=== PATIENT | female | born 2005 | race Two or more races ===

== ENCOUNTER 2025-03-27 22:36 | Emergency (ER) | payer MEDICAID, SELFPAY ==
[2025-03-27 22:38] VITALS: BMI 30.4
--- NOTE | 2025-03-27 23:05 | PD.EDURI ---
Upper Respiratory Inf. RME/HPI General Chief Complaint: Fever Stated Complaint: FEVER AND CHILLS X3 DAYS Time Seen by Provider: 03/27/25 23:11 Arrival date/time: 03/27/25 22:36 RME / HPI RME / HPI Narrative: See MDM for Dr. Matamoros's HPI Documentation. Related Data Previous Rx's ?Medication ?Instructions ?Recorded amoxicillin 875 mg-potassium 1 tab PO BID #20 tabs 03/28/25 clavulanate 125 mg tablet prednisone 50 mg tablet 50 mg PO QDAY #3 tabs 03/28/25 Allergies Allergy/AdvReac Type Severity Reaction Status Date / Time No Known Allergies Allergy Verified 03/27/25 22:37 Review of Systems Review of Systems Systems Reviewed: All systems reviewed, normal except as documented Past Medical History Social History SMOKING STATUS: Never smoker ED Exam Narrative Physical exam: See [facility] for Dr. Matamoros's Physical Exam Documentation. Course Quality Measures none Orders Category Date Time Status Bedside COVID-19 Antigen Test NOW Care 03/27/25 23:00 Completed Influenza A & B Rapid Panel Stat Lab 03/27/25 23:21 Completed Strep A Rapid Stat Lab 03/27/25 23:21 Completed Acetaminophen Tab [Tylenol ES Tab] Med 03/27/25 23:11 Discontinued 1,000 mg PO X1 ONE Amoxicillin/Pot Clav 875 [Augmentin 875] Med 03/28/25 00:51 Discontinued 1 tab PO X1 ONE Ibuprofen Tab [Motrin Tab] Med 03/27/25 23:11 Discontinued 800 mg PO X1 ONE Ondansetron Odt [Zofran Odt] Med 03/27/25 23:11 Discontinued 4 mg PO X1 ONE Vital Signs Vital signs: Vital Signs Temperature 102.8 F H 03/27/25 23:11 Pulse Rate 112 H 03/27/25 23:11 Respiratory Rate 20 03/27/25 23:11 Blood Pressure 119/80 03/27/25 23:11 Pulse Oximetry (%) 99 03/27/25 23:11 Oxygen Delivery Method Room Air 03/27/25 23:11 Upper Respiratory Infection MDM Narrative MDM Narrative:: This section includes all my notes and documentations, including HPI, PE, and ED course. Deon Matamoros MD HPI: 19 y/o female presents with fever and chills and sore throat x 3 days. No cough. No other complaints. ROS: All negative except as documented in HPI. Physical Exam: General: Alert and oriented. Eyes: Conjunctivae and lids clear. ENT: No nasal congestion. Pharynx erythematous with tonsillar edema and exudate. TM normal bilaterally. Neck: Supple. Heart: RRR. Lungs: No respiratory distress. Good air movement. No rhonchi, wheezing, rales. Abdomen: Soft and nontender. Normal bowel sounds. No distension. No rebound or guarding. Back: No CVA tenderness. Skin: Warm and dry. Neuro: Alert and oriented X 3. I reviewed all diagnostic test results: Covid/Influenza: Negative Rapid Strep: Negative At this point, diagnoses include: Tonsillitis Treatment here included: Tylenol 1 G Motrin 800 mg Zofran 4 mg Augmentin 875 mg She started to feel better. Recommended outpatient care. Based on my best medical judgment, made decision no further evaluation or treatment indicated at this time. Patient understands and agrees to the discharge instructions customized and printed, see below. Discharge Instructions from Dr. Matamoros printed for you: 1. Take Augmentin to kill the germs causing your tonsillitis. 2. Prednisone will help decrease inflammation of the tonsils. 3. Tylenol 1000 mg alternating with ibuprofen 600 mg every 4 hours today and tomorrow scheduled. Then as needed for fever/pain. 4. For good hydration, increase oral fluid and maintain clear urine. If dark or yellow, increase oral fluid. 5. See a private doctor next week if not completely better. 6. Seek immediate medical care with worsening or with any concerns. Deon Matamoros MD Patient data External records reviewed:: [facility] previous records (No prior ED records available for review) Clinical information provided by:: patient Social determinants that could affect healthcare access:: none Patient has the following chronic illnesses:: None reported How is presenting disease/condition affected by chronic disease/condition?: no chronic disease Evaluation data The following diagnostics were reviewed and interpreted by me:: other (specify) (COVID/Influenza/Rapid Strep) Lab and/or radiology exams considered but not ordered:: None Interpretation Summary: I reviewed all diagnostic test results: Covid/Influenza: Negative Rapid Strep: Negative Medications / Prescriptions Medications or Prescriptions considered but not ordered:: None Medication administrations:: Medication Administration History Discontinued Medications Acetaminophen (Acetaminophen 500 Mg Tablet) 1,000 mg PO X1 ONE Stop: 03/27/25 23:12 Last Admin: 03/27/25 23:32 Dose: 1,000 mg Documented By: BD Amoxicillin/Clavulanate Potassium (Amoxicillin/Pot Clav 875 Tablet) 1 tab PO X1 ONE Stop: 03/28/25 00:52 Last Admin: 03/28/25 00:57 Dose: 1 tab Documented By: BD Ibuprofen (Ibuprofen Tab 400 Mg Tablet) 800 mg PO X1 ONE Stop: 03/27/25 23:12 Last Admin: 03/27/25 23:32 Dose: 800 mg Documented By: BD Ondansetron HCl (Ondansetron Odt 4 Mg Tabrap) 4 mg PO X1 ONE; Protocol Stop: 03/27/25 23:12 Last Admin: 03/27/25 23:33 Dose: 4 mg Documented By: BD Tylenol 1 G Motrin 800 mg Zofran 4 mg Augmentin 875 mg Consultations Consultation(s) initiated? (list below): No Diagnosis Upper Respiratory Differential Diagnosis: upper respiratory infection, otitis media, sinusitis, viral infection, bronchitis, influenza, pharyngitis and other (COVID, Influenza, tonsillitis) Most likely diagnosis given after review of the tests above:: Tonsillitis Admission Indicated Admission indicated?: not indicated Explain why admission is indicated or not indicated:: With significant improvement and no condition needing emergent intervention, there was no indication for admission. Admission Request Was there a request for admission?: No Disposition Plan Disposition Plan: Discharge Discharge Attestation Discharge Attestation: The patient and all family members were given an opportunity to ask questions and understood the discharge instructions. Discharge instructions specifically effects, indications for sooner follow up or return to the emergency department, and the expected course of current diagnosis. Patient condition: Stable Discharge Plan Plan Patient Disposition: HOME (Self Care) Prescriptions/Referrals Prescriptions/Med Rec: New prednisone 50 mg tablet 50 mg PO QDAY Qty: 3 0RF amoxicillin-pot clavulanate 875-125 mg tablet 1 tab PO BID Qty: 20 0RF Problem List Clinical Impression: Tonsillitis Patient/Caregiver Discharge Instructions Discharge Activity: activity as tolerated Education Materials: ED Tonsillitis (Child) Additional Instructions: Discharge Instructions from Dr. Matamoros printed for you: 1. Take Augmentin to kill the germs causing your tonsillitis. 2. Prednisone will help decrease inflammation of the tonsils. 3. Tylenol 1000 mg alternating with ibuprofen 600 mg every 4 hours today and tomorrow scheduled. Then as needed for fever/pain. 4. For good hydration, increase oral fluid and maintain clear urine. If dark or yellow, increase oral fluid. 5. See a private doctor next week if not completely better. 6. Seek immediate medical care with worsening or with any concerns. Print Language: Colombian Stand Alone Forms: [facility] Award Info., Patient Portal Info Letter
[2025-03-27 23:11] VITALS: BP 119/80; PULSE 112; RESP 20; TEMP 39.3; O2SAT 99
[2025-03-27 23:32] VITALS: TEMP 39.3
[2025-03-27] MEDS: ACETAMINOPHEN 500 MG TABLET 1000 MG PO (23:32)
[2025-03-27] MEDS: IBUPROFEN TAB 400 MG TABLET 800 MG PO (23:32)
[2025-03-27] MEDS: ONDANSETRON ODT 4 MG TABRAP PO (23:33)
[2025-03-28 00:24] LABS: Influenza A Ag Negative; Influenza B Ag Negative; Strep A Rapid Negative (Negative)
[2025-03-28 00:34] VITALS: BP 106/69; PULSE 94; RESP 19; TEMP 38; O2SAT 98
[2025-03-28] MEDS: AMOXICILLIN/POT CLAV 875 TABLET 1 TAB PO (00:57)
== END 2025-03-28 01:00 | disposition home or self-care (01) ==
PROVIDERS: Emergency Provider Emergency Medicine
DX: J03.90 Acute tonsillitis, unspecified (principal); Z11.52 Encounter for screening for COVID-19
CPT/HCPCS: 87502; 87651; 87811; 99283; Q0162; A9270